=== PATIENT | male | born 1955 | race Caucasian/White ===

== ENCOUNTER 2020-08-15 12:43 | Inpatient (IN) ==
[2020-08-15] MEDS ORDERED: ONDANSETRON 4 MG/2 ML VIAL IV STA (15:36)
[2020-08-15] MEDS ORDERED: SODIUM CHLORIDE 0.9% 1,000 ML IV STA (15:36)
[2020-08-15] MEDS ORDERED: ONDANSETRON 4 MG/2 ML VIAL ONE (15:37)
[2020-08-15 15:40] LABS: Basophils % 0.4 % (0.0-0.8); Eosinophils # 0.1 10*3/uL (0.0-0.87); Eosinophils % 1.1 % (0.00-10.9); Hematocrit 45.5 VOL% (42.0-52.0); Hemoglobin 14.5 GM/DL (14.0-18.0); Immature Granulocytes % 0.2 %; Immature Granulocytes Absolute 0.02 #; Lymphocytes # 1.7 10*3/uL (1.4-4.0); Lymphocytes % 21.3 % (21.2-54.2); Mean Corpuscular HGB Conc 31.9 GM/DL (32-36); Mean Corpuscular Volume 95.8 FL (87-102); Mean Platelet Volume 10.2 FL (9.6-12.0); Monocytes % 9.5 % (1.7-12.7); Neutrophils % 67.5 % (38.7-73.9); Platelet Count 270 T/CUMM (130-400); Red Blood Count 4.75 MC/CUMM (3.8-5.5); Red Cell Distribution Width 14.7 % (9.3-17.3)
[2020-08-15 15:58] LABS: Bilirubin,Urine Negative (Negative); Blood, Urine Small mg/dL (Negative); Glucose,Urine (UA) Negative (Negative); Hyaline Casts,Urine 31 /LPF (0-3); Ketones,Urine Negative (Negative); Mucus,Urine Occasional /LPF (Occasional); Nitrite,Urine Negative (Negative); Protein,Urine 100 MG/DL; RBC,Urine 2 /HPF (0-4); Urine Appearance CLEAR (Clear); Urine Color Yellow (Yellow); Urine Specific Gravity 1.023 (1.001-1.035); Urine Urobilinogen < 2.0 EU/DL (0.2-1.0)
[2020-08-15 16:13] LABS: Albumin 4.7 G/DL (3.4-5.0); Bilirubin,Total 0.6 MG/DL (0.2-1.0); Calcium 9.5 MG/DL (8.5-10.1); Total Protein 8.9 G/DL (6.4-8.2)
[2020-08-15] MEDS ORDERED: PROMETHAZINE INJ 25 MG in SODIUM CHLORIDE 0.9% 50 ML IV STA (16:14)
[2020-08-15] MEDS ORDERED: PROMETHAZINE 25 MG/1 ML VIAL ONE (16:16)
[2020-08-15] MEDS ORDERED: DEXTROSE 50% 25 GM/50 ML VIAL IV PRN (19:18)
[2020-08-15] MEDS ORDERED: GLUCAGON 1 MG VIAL IM PRN (19:18)
[2020-08-15] MEDS ORDERED: ONDANSETRON 4 MG/2 ML VIAL IV PRN (19:25)
[2020-08-15] MEDS ORDERED: hydrALAZINE 20 MG/1 ML VIAL IV PRN (19:25)
[2020-08-15] MEDS ORDERED: diphenhydrAMINE 50 MG/1 ML VIAL IV PRN (19:29)
[2020-08-15] MEDS: DEXTROSE 5% NACL 0.45% 1,000 ML IV SCH (20:38)
[2020-08-15] MEDS: ENOXAPARIN 40 MG/0.4 ML SYRINGE SUBCUT SCH (20:38)
[2020-08-16] MEDS: DEXTROSE 5% NACL 0.45% 1,000 ML IV SCH ×5 (04:49→18:39)
[2020-08-16 05:56] LABS: Basophils % 0.4 % (0.0-0.8); Eosinophils # 0.1 10*3/uL (0.0-0.87); Eosinophils % 1.6 % (0.00-10.9); Hemoglobin 12.7 GM/DL (14.0-18.0); Immature Granulocytes % 0.3 %; Immature Granulocytes Absolute 0.02 #; Lymphocytes # 1.8 10*3/uL (1.4-4.0); Lymphocytes % 25.8 % (21.2-54.2); Mean Corpuscular HGB Conc 31.8 GM/DL (32-36); Mean Corpuscular Volume 96.4 FL (87-102); Mean Platelet Volume 10.6 FL (9.6-12.0); Monocytes % 11.8 % (1.7-12.7); Neutrophils % 60.1 % (38.7-73.9); Platelet Count 231 T/CUMM (130-400); Red Blood Count 4.15 MC/CUMM (3.8-5.5); Red Cell Distribution Width 14.9 % (9.3-17.3); White Blood Count 6.8 T/CUMM (4-12)
[2020-08-16 06:13] LABS: Calcium 8.8 MG/DL (8.5-10.1); Osmolality,Calculated 296.6 MOS/KG (273-304); Potassium 3.9 MMOL/L (3.5-5.1)
[2020-08-16] MEDS: ENOXAPARIN 40 MG/0.4 ML SYRINGE SUBCUT SCH (18:39)
[2020-08-17] MEDS: DEXTROSE 5% NACL 0.45% 1,000 ML IV SCH (03:30)
[2020-08-17 15:01] VITALS: BP 161/69
== END 2020-08-17 12:20 | disposition home or self-care (01) | DRG 395 ==
LOC: N.ED 12:43 → N.EDINP 19:18 → N.3E 21:13
PROVIDERS: ADMIT Family Medicine; ATTEND Family Medicine

== ENCOUNTER 2021-07-20 07:51 | Inpatient (IN) ==
[2021-07-20 08:23] LABS: Basophils % 0.2 % (0.0-0.8); Eosinophils # 0.1 10*3/uL (0.0-0.87); Eosinophils % 1.1 % (0.00-10.9); Hematocrit 43.7 VOL% (42.0-52.0); Hemoglobin 14.1 GM/DL (14.0-18.0); Immature Granulocytes % 0.4 %; Immature Granulocytes Absolute 0.05 #; Lymphocytes # 1.6 10*3/uL (1.4-4.0); Lymphocytes % 14.1 % (21.2-54.2); Mean Corpuscular HGB Conc 32.3 GM/DL (32-36); Mean Platelet Volume 9.9 FL (9.6-12.0); Monocytes # 1.4 10*3/uL (0.11-0.8); Monocytes % 12.5 % (1.7-12.7); Neutrophils % 71.7 % (38.7-73.9); Platelet Count 304 T/CUMM (130-400); Red Blood Count 4.65 MC/CUMM (3.8-5.5); Red Cell Distribution Width 13.5 % (9.3-17.3); White Blood Count 11.3 T/CUMM (4-12)
[2021-07-20 08:42] LABS: Bilirubin,Total 0.6 MG/DL (0.20-1.00); Calcium 8.7 MG/DL (8.5-10.1); Osmolality,Calculated 272.4 MOS/KG (273-304); Potassium 4.1 MMOL/L (3.5-5.1); Total Protein 7.5 G/DL (6.4-8.2)
[2021-07-20] MEDS ORDERED: SODIUM CHLORIDE 0.9% 1,000 ML IV STA ×2 (09:14→10:55)
[2021-07-20] MEDS ORDERED: GLUCAGON 1 MG VIAL IM PRN (11:38)
[2021-07-20] MEDS ORDERED: DEXTROSE 10% 250 ML BAG IV PRN (12:33)
[2021-07-20] MEDS: SODIUM CHLORIDE 0.9% 1,000 ML IV SCH ×2 (13:30→21:06)
[2021-07-20] MEDS: ENOXAPARIN 30 MG/0.3 ML SYRINGE SUBCUT SCH (17:14)
[2021-07-20] MEDS: allopurinoL 100 MG TABLET PO SCH (21:06)
[2021-07-20] MEDS: FLECAINIDE 100 MG TABLET PO SCH (21:06)
[2021-07-20] MEDS: KETOROLAC 15 MG/1 ML VIAL IV PRN (23:23)
[2021-07-21] MEDS: VANCOMYCIN 125 MG CAPSULE PO SCH ×4 (01:55→20:34)
[2021-07-21] MEDS: SODIUM CHLORIDE 0.9% 1,000 ML IV SCH ×3 (03:20→20:34)
[2021-07-21 05:33] LABS: Basophils % 0.3 % (0.0-0.8); Eosinophils % 0.4 % (0.00-10.9); Hematocrit 39.4 VOL% (42.0-52.0); Hemoglobin 12.4 GM/DL (14.0-18.0); Immature Granulocytes % 0.4 %; Immature Granulocytes Absolute 0.03 #; Lymphocytes # 1.1 10*3/uL (1.4-4.0); Lymphocytes % 16.3 % (21.2-54.2); Mean Corpuscular HGB Conc 31.5 GM/DL (32-36); Mean Corpuscular Volume 95.4 FL (87-102); Mean Platelet Volume 10.8 FL (9.6-12.0); Monocytes % 14.5 % (1.7-12.7); Neutrophils % 68.1 % (38.7-73.9); Platelet Count 232 T/CUMM (130-400); Red Blood Count 4.13 MC/CUMM (3.8-5.5); Red Cell Distribution Width 13.6 % (9.3-17.3)
[2021-07-21 05:54] LABS: Albumin 3.2 G/DL (3.4-5.0); Bilirubin,Total 0.4 MG/DL (0.20-1.00); Calcium 8.3 MG/DL (8.5-10.1); Osmolality,Calculated 277.8 MOS/KG (273-304); Potassium 4.1 MMOL/L (3.5-5.1); Total Protein 6.6 G/DL (6.4-8.2)
[2021-07-21] MEDS: FLECAINIDE 100 MG TABLET PO SCH ×2 (08:04→20:34)
[2021-07-21] MEDS: KETOROLAC 15 MG/1 ML VIAL IV PRN ×2 (08:06→17:27)
[2021-07-21] MEDS: PANTOPRAZOLE 40 MG TABLET PO SCH (08:13)
[2021-07-21] MEDS ORDERED: NON-FORMULARY MEDICATION (Losartan 100 mg Tablet) PO SCH (09:00)
[2021-07-21] MEDS ORDERED: amLODIPine 5 MG TABLET PO SCH (09:00)
[2021-07-21] MEDS: ENOXAPARIN 30 MG/0.3 ML SYRINGE SUBCUT SCH (15:21)
[2021-07-21] MEDS: allopurinoL 100 MG TABLET PO SCH (20:35)
[2021-07-22] MEDS: SIMETHICONE CHEW 125 MG TABLET PO PRN (00:02)
[2021-07-22] MEDS: ZALEPLON 5 MG CAPSULE PO PRN ×2 (00:02→20:40)
[2021-07-22] MEDS: KETOROLAC 15 MG/1 ML VIAL IV PRN ×4 (01:48→23:20)
[2021-07-22] MEDS: VANCOMYCIN 125 MG CAPSULE PO SCH ×4 (04:07→20:41)
[2021-07-22] MEDS: SODIUM CHLORIDE 0.9% 1,000 ML IV SCH ×2 (04:08→13:42)
[2021-07-22 04:40] LABS: Basophils % 0.3 % (0.0-0.8); Eosinophils # 0.1 10*3/uL (0.0-0.87); Eosinophils % 1.3 % (0.00-10.9); Hematocrit 35.2 VOL% (42.0-52.0); Hemoglobin 11.5 GM/DL (14.0-18.0); Immature Granulocytes % 0.3 %; Immature Granulocytes Absolute 0.01 #; Lymphocytes # 0.6 10*3/uL (1.4-4.0); Lymphocytes % 15.8 % (21.2-54.2); Mean Corpuscular HGB Conc 32.7 GM/DL (32-36); Mean Corpuscular Volume 93.6 FL (87-102); Mean Platelet Volume 10.3 FL (9.6-12.0); Monocytes # 0.8 10*3/uL (0.11-0.8); Monocytes % 20.4 % (1.7-12.7); Neutrophils % 61.9 % (38.7-73.9); Platelet Count 222 T/CUMM (130-400); Red Blood Count 3.76 MC/CUMM (3.8-5.5); Red Cell Distribution Width 13.5 % (9.3-17.3); White Blood Count 3.7 T/CUMM (4-12)
[2021-07-22 05:05] LABS: Calcium 8.1 MG/DL (8.5-10.1); Osmolality,Calculated 274.8 MOS/KG (273-304); Potassium 3.7 MMOL/L (3.5-5.1)
[2021-07-22 05:21] LABS: Band Neutrophils 11 % (0-10); Lymphocytes 12 % (20-55); Total Cells Counted 100
[2021-07-22 05:22] LABS: Microcytosis Slight; Ovalocytes Slight; Platelet Estimate Normal
[2021-07-22] MEDS: PANTOPRAZOLE 40 MG TABLET PO SCH (09:41)
[2021-07-22] MEDS: FLECAINIDE 100 MG TABLET PO SCH ×2 (09:42→20:40)
[2021-07-22] MEDS: SODIUM BICARB INJ 100 MEQ in DEXTROSE 5% 1,000 ML IV SCH (13:22)
[2021-07-22] MEDS: ENOXAPARIN 30 MG/0.3 ML SYRINGE SUBCUT SCH (17:27)
[2021-07-22] MEDS: allopurinoL 100 MG TABLET PO SCH (20:41)
[2021-07-23] MEDS: SODIUM BICARB INJ 100 MEQ in DEXTROSE 5% 1,000 ML IV SCH (01:14)
[2021-07-23] MEDS: VANCOMYCIN 125 MG CAPSULE PO SCH ×3 (02:15→14:52)
[2021-07-23] MEDS: KETOROLAC 15 MG/1 ML VIAL IV PRN ×3 (05:29→18:21)
[2021-07-23] MEDS: FLECAINIDE 100 MG TABLET PO SCH ×2 (10:42→21:14)
[2021-07-23] MEDS: PANTOPRAZOLE 40 MG TABLET PO SCH (10:42)
[2021-07-23] MEDS: SIMETHICONE CHEW 125 MG TABLET PO PRN (12:21)
[2021-07-23] MEDS: SODIUM BICARB INJ 150 MEQ in DEXTROSE 5% 1,000 ML IV SCH (14:05)
[2021-07-23] MEDS: ONDANSETRON 4 MG/2 ML VIAL IV PRN (14:45)
[2021-07-23] MEDS: VANCOMYCIN 50 MG/ML 60 ML/BOTTLE PER TUBE SCH (21:14)
[2021-07-23] MEDS: ZALEPLON 5 MG CAPSULE PO PRN (21:14)
[2021-07-23] MEDS: allopurinoL 100 MG TABLET PO SCH (21:14)
[2021-07-23] MEDS: metroNIDAZOLE INJ 500 MG/100 ML PREMIX IV SCH (21:14)
[2021-07-23] MEDS: ENOXAPARIN 30 MG/0.3 ML SYRINGE SUBCUT SCH (21:14)
[2021-07-24] MEDS: KETOROLAC 15 MG/1 ML VIAL IV PRN (00:13)
[2021-07-24] MEDS: SODIUM BICARB INJ 150 MEQ in DEXTROSE 5% 1,000 ML IV SCH (03:45)
[2021-07-24] MEDS: metroNIDAZOLE INJ 500 MG/100 ML PREMIX IV SCH ×3 (04:38→20:28)
[2021-07-24] MEDS: VANCOMYCIN 50 MG/ML 60 ML/BOTTLE PER TUBE SCH ×4 (04:38→20:28)
[2021-07-24 05:06] LABS: Basophils % 0.2 % (0.0-0.8); Hematocrit 37.6 VOL% (42.0-52.0); Hemoglobin 12.6 GM/DL (14.0-18.0); Immature Granulocytes % 0.7 %; Immature Granulocytes Absolute 0.03 #; Lymphocytes # 0.8 10*3/uL (1.4-4.0); Lymphocytes % 19.8 % (21.2-54.2); Mean Corpuscular HGB Conc 33.5 GM/DL (32-36); Mean Corpuscular Volume 90.6 FL (87-102); Mean Platelet Volume 10.5 FL (9.6-12.0); Monocytes # 1.1 10*3/uL (0.11-0.8); Monocytes % 25.9 % (1.7-12.7); Neutrophils % 52.4 % (38.7-73.9); Platelet Count 292 T/CUMM (130-400); Red Blood Count 4.15 MC/CUMM (3.8-5.5); Red Cell Distribution Width 13.3 % (9.3-17.3); White Blood Count 4.1 T/CUMM (4-12)
[2021-07-24 05:24] LABS: Calcium 8.6 MG/DL (8.5-10.1); Osmolality,Calculated 268.4 MOS/KG (273-304); Potassium 3.1 MMOL/L (3.5-5.1)
[2021-07-24 06:00] LABS: Eosinophils 1 % (0-10); Lymphocytes 28 % (20-55); Platelet Estimate Adequate; Total Cells Counted 100
[2021-07-24] MEDS ORDERED: MAGNESIUM SULF RIDER 2 GM/50 ML PREMIX IV ONE (07:40)
[2021-07-24] MEDS: PANTOPRAZOLE 40 MG TABLET PO SCH (10:50)
[2021-07-24] MEDS: FLECAINIDE 100 MG TABLET PO SCH ×2 (10:50→20:28)
[2021-07-24] MEDS: DEXTROSE 5% NACL 0.9% 1,000 ML IV SCH ×3 (14:32→23:50)
[2021-07-24] MEDS ORDERED: SODIUM CHLORIDE 0.9% 500 ML IV ONE (16:26)
[2021-07-24] MEDS: allopurinoL 100 MG TABLET PO SCH (20:28)
[2021-07-24] MEDS: ENOXAPARIN 30 MG/0.3 ML SYRINGE SUBCUT SCH (20:29)
[2021-07-24] MEDS: ZALEPLON 5 MG CAPSULE PO PRN (20:30)
[2021-07-25] MEDS: VANCOMYCIN 50 MG/ML 60 ML/BOTTLE PER TUBE SCH ×4 (03:25→20:53)
[2021-07-25] MEDS: metroNIDAZOLE INJ 500 MG/100 ML PREMIX IV SCH ×3 (05:08→20:52)
[2021-07-25 06:07] LABS: Basophils # 0.1 10*3/uL (0.0-0.2); Basophils % 0.9 % (0.0-0.8); Eosinophils # 0.1 10*3/uL (0.0-0.87); Eosinophils % 0.9 % (0.00-10.9); Hematocrit 37.8 VOL% (42.0-52.0); Hemoglobin 11.8 GM/DL (14.0-18.0); Immature Granulocytes % 0.6 %; Immature Granulocytes Absolute 0.04 #; Lymphocytes # 0.9 10*3/uL (1.4-4.0); Lymphocytes % 13.5 % (21.2-54.2); Mean Corpuscular HGB Conc 31.2 GM/DL (32-36); Mean Corpuscular Volume 92.9 FL (87-102); Mean Platelet Volume 10.1 FL (9.6-12.0); Monocytes # 1.4 10*3/uL (0.11-0.8); Monocytes % 21.3 % (1.7-12.7); Neutrophils % 62.8 % (38.7-73.9); Platelet Count 297 T/CUMM (130-400); Red Blood Count 4.07 MC/CUMM (3.8-5.5); Red Cell Distribution Width 13.7 % (9.3-17.3); White Blood Count 6.8 T/CUMM (4-12)
[2021-07-25 06:28] LABS: Calcium 8.5 MG/DL (8.5-10.1); Osmolality,Calculated 284.7 MOS/KG (273-304)
[2021-07-25 06:30] LABS: Band Neutrophils 9 % (0-10); Lymphocytes 13 % (20-55); Platelet Estimate Normal; Total Cells Counted 100
[2021-07-25] MEDS: FLECAINIDE 100 MG TABLET PO SCH ×2 (09:36→20:52)
[2021-07-25] MEDS: PANTOPRAZOLE 40 MG VIAL IV SCH (09:36)
[2021-07-25] MEDS: DEXT 5% NACL 0.9% KCL 20 MEQ 20 MEQ/1,000 ML BAG IV SCH ×3 (09:37→23:34)
[2021-07-25] MEDS: DEXTROSE 5% NACL 0.9% 1,000 ML IV SCH (09:42)
[2021-07-25] MEDS ORDERED: allopurinoL 100 MG TABLET PO SCH (19:00)
[2021-07-25] MEDS: ENOXAPARIN 30 MG/0.3 ML SYRINGE SUBCUT SCH (20:53)
[2021-07-25] MEDS: ZALEPLON 5 MG CAPSULE PO PRN (20:58)
[2021-07-26] MEDS: VANCOMYCIN 50 MG/ML 60 ML/BOTTLE PER TUBE SCH ×4 (03:11→21:20)
[2021-07-26 04:18] LABS: Basophils # 0.1 10*3/uL (0.0-0.2); Basophils % 0.7 % (0.0-0.8); Eosinophils # 0.1 10*3/uL (0.0-0.87); Eosinophils % 1.1 % (0.00-10.9); Hematocrit 38.7 VOL% (42.0-52.0); Hemoglobin 12.4 GM/DL (14.0-18.0); Immature Granulocytes % 0.8 %; Immature Granulocytes Absolute 0.07 #; Lymphocytes # 0.9 10*3/uL (1.4-4.0); Lymphocytes % 9.6 % (21.2-54.2); Mean Corpuscular Volume 93.7 FL (87-102); Mean Platelet Volume 9.9 FL (9.6-12.0); Monocytes # 1.5 10*3/uL (0.11-0.8); Neutrophils % 70.8 % (38.7-73.9); Platelet Count 318 T/CUMM (130-400); Red Blood Count 4.13 MC/CUMM (3.8-5.5); Red Cell Distribution Width 13.7 % (9.3-17.3); White Blood Count 8.9 T/CUMM (4-12)
[2021-07-26 04:37] LABS: Calcium 8.7 MG/DL (8.5-10.1); Osmolality,Calculated 292.4 MOS/KG (273-304); Potassium 3.4 MMOL/L (3.5-5.1)
[2021-07-26 04:39] LABS: Band Neutrophils 4 % (0-10); Lymphocytes 12 % (20-55); Platelet Estimate Adequate; Total Cells Counted 100
[2021-07-26] MEDS: metroNIDAZOLE INJ 500 MG/100 ML PREMIX IV SCH ×3 (05:07→20:45)
[2021-07-26] MEDS: DEXT 5% NACL 0.9% KCL 20 MEQ 20 MEQ/1,000 ML BAG IV SCH ×3 (06:44→19:22)
[2021-07-26] MEDS: FLECAINIDE 100 MG TABLET PO SCH ×2 (10:08→20:47)
[2021-07-26] MEDS: PANTOPRAZOLE 40 MG VIAL IV SCH (10:08)
[2021-07-26] MEDS ORDERED: SODIUM CHLORIDE 0.9% 1,000 ML IV ONE (12:30)
[2021-07-26] MEDS ORDERED: SODIUM CHLORIDE 0.9% 1,000 ML IV SCH (12:30)
[2021-07-26] MEDS: ENOXAPARIN 30 MG/0.3 ML SYRINGE SUBCUT SCH (20:46)
[2021-07-27] MEDS: VANCOMYCIN 50 MG/ML 60 ML/BOTTLE PER TUBE SCH ×4 (03:30→21:35)
[2021-07-27] MEDS: metroNIDAZOLE INJ 500 MG/100 ML PREMIX IV SCH ×3 (05:30→21:21)
[2021-07-27 05:34] LABS: Calcium 8.2 MG/DL (8.5-10.1); Osmolality,Calculated 294.1 MOS/KG (273-304); Potassium 3.6 MMOL/L (3.5-5.1)
[2021-07-27] MEDS: DEXT 5% NACL 0.9% KCL 20 MEQ 20 MEQ/1,000 ML BAG IV SCH ×4 (06:38→19:26)
[2021-07-27] MEDS: PANTOPRAZOLE 40 MG VIAL IV SCH (10:01)
[2021-07-27] MEDS: FLECAINIDE 100 MG TABLET PO SCH ×2 (10:01→21:22)
[2021-07-27 14:16] LABS: Bilirubin,Urine Small mg/dL (Negative); Blood, Urine Negative (Negative); Glucose,Urine (UA) Negative (Negative); Ketones,Urine Negative (Negative); Nitrite,Urine Negative (Negative); Protein,Urine 100 mg/dL (Negative); Urine Appearance Clear (Clear); Urine Color Brown (Yellow); Urine Specific Gravity 1.015 (1.001-1.035); Urine Urobilinogen 0.2 eU/dL (<2.0)
[2021-07-27 14:18] LABS: Mucus,Urine Occasional /LPF (Occasional); RBC,Urine 2 /HPF (0-4); Squamous Epithelial Cell,Urine Occasional /HPF (0-10)
[2021-07-27] MEDS: ENOXAPARIN 30 MG/0.3 ML SYRINGE SUBCUT SCH (21:22)
[2021-07-28] MEDS: DEXT 5% NACL 0.9% KCL 20 MEQ 20 MEQ/1,000 ML BAG IV SCH ×3 (04:16→18:46)
[2021-07-28] MEDS: VANCOMYCIN 50 MG/ML 60 ML/BOTTLE PER TUBE SCH ×4 (04:17→20:39)
[2021-07-28] MEDS: metroNIDAZOLE INJ 500 MG/100 ML PREMIX IV SCH ×3 (04:19→20:40)
[2021-07-28 05:07] LABS: Basophils % 0.5 % (0.0-0.8); Eosinophils # 0.1 10*3/uL (0.0-0.87); Eosinophils % 1.5 % (0.00-10.9); Hematocrit 38.6 VOL% (42.0-52.0); Immature Granulocytes % 1.3 %; Immature Granulocytes Absolute 0.11 #; Lymphocytes # 1.1 10*3/uL (1.4-4.0); Lymphocytes % 13.1 % (21.2-54.2); Mean Corpuscular HGB Conc 31.1 GM/DL (32-36); Mean Corpuscular Volume 96.3 FL (87-102); Mean Platelet Volume 9.9 FL (9.6-12.0); Monocytes # 1.2 10*3/uL (0.11-0.8); Monocytes % 14.2 % (1.7-12.7); Neutrophils % 69.4 % (38.7-73.9); Platelet Count 318 T/CUMM (130-400); Red Blood Count 4.01 MC/CUMM (3.8-5.5); White Blood Count 8.5 T/CUMM (4-12)
[2021-07-28 05:23] LABS: Calcium 8.9 MG/DL (8.5-10.1); Potassium 4.1 MMOL/L (3.5-5.1)
[2021-07-28] MEDS: PANTOPRAZOLE 40 MG VIAL IV SCH (09:52)
[2021-07-28] MEDS: FLECAINIDE 100 MG TABLET PO SCH ×2 (09:53→20:38)
[2021-07-28] MEDS ORDERED: METOCLOPRAMIDE 10 MG/2 ML VIAL IV PRN (11:25)
[2021-07-28] MEDS: traMADol 50 MG TABLET PO PRN (15:13)
[2021-07-28] MEDS: ZALEPLON 5 MG CAPSULE PO PRN (20:39)
[2021-07-28] MEDS: ENOXAPARIN 40 MG/0.4 ML SYRINGE SUBCUT SCH (20:39)
[2021-07-29] MEDS: DEXT 5% NACL 0.9% KCL 20 MEQ 20 MEQ/1,000 ML BAG IV SCH ×2 (01:54→13:40)
[2021-07-29] MEDS: VANCOMYCIN 50 MG/ML 60 ML/BOTTLE PER TUBE SCH ×4 (03:42→20:11)
[2021-07-29] MEDS: metroNIDAZOLE INJ 500 MG/100 ML PREMIX IV SCH ×2 (05:22→12:20)
[2021-07-29 05:23] LABS: Basophils % 0.2 % (0.0-0.8); Eosinophils # 0.2 10*3/uL (0.0-0.87); Eosinophils % 1.7 % (0.00-10.9); Hematocrit 37.4 VOL% (42.0-52.0); Hemoglobin 11.5 GM/DL (14.0-18.0); Immature Granulocytes % 1.3 %; Immature Granulocytes Absolute 0.12 #; Lymphocytes # 1.2 10*3/uL (1.4-4.0); Lymphocytes % 13.3 % (21.2-54.2); Mean Corpuscular HGB Conc 30.7 GM/DL (32-36); Mean Corpuscular Volume 97.1 FL (87-102); Mean Platelet Volume 10.1 FL (9.6-12.0); Monocytes # 1.1 10*3/uL (0.11-0.8); Monocytes % 11.7 % (1.7-12.7); Neutrophils % 71.8 % (38.7-73.9); Platelet Count 334 T/CUMM (130-400); Red Blood Count 3.85 MC/CUMM (3.8-5.5); Red Cell Distribution Width 14.3 % (9.3-17.3); White Blood Count 8.9 T/CUMM (4-12)
[2021-07-29 05:35] LABS: Calcium 8.8 MG/DL (8.5-10.1); Osmolality,Calculated 284.3 MOS/KG (273-304); Potassium 4.3 MMOL/L (3.5-5.1)
[2021-07-29] MEDS: FLECAINIDE 100 MG TABLET PO SCH ×2 (08:32→20:11)
[2021-07-29] MEDS: PANTOPRAZOLE 40 MG VIAL IV SCH (08:33)
[2021-07-29] MEDS: METOPROLOL SUCCINATE XL 50 MG TABLET PO SCH (08:35)
[2021-07-29] MEDS: amLODIPine 5 MG TABLET PO SCH (10:00)
[2021-07-29] MEDS ORDERED: hydrALAZINE 20 MG/1 ML VIAL IV PRN (14:21)
[2021-07-29] MEDS: ATORVASTATIN 20 MG TABLET PO SCH (18:33)
[2021-07-29] MEDS: ENOXAPARIN 40 MG/0.4 ML SYRINGE SUBCUT SCH (20:11)
[2021-07-29] MEDS ORDERED: CHOLESTYRAMINE 4 GM PACK PO SCH (22:00)
[2021-07-30] MEDS: VANCOMYCIN 50 MG/ML 60 ML/BOTTLE PER TUBE SCH ×4 (03:27→20:20)
[2021-07-30] MEDS: DEXT 5% NACL 0.9% KCL 20 MEQ 20 MEQ/1,000 ML BAG IV SCH (05:59)
[2021-07-30 06:15] LABS: Basophils % 0.2 % (0.0-0.8); Eosinophils # 0.2 10*3/uL (0.0-0.87); Eosinophils % 1.7 % (0.00-10.9); Hematocrit 37.6 VOL% (42.0-52.0); Hemoglobin 11.7 GM/DL (14.0-18.0); Immature Granulocytes % 1.6 %; Immature Granulocytes Absolute 0.15 #; Lymphocytes # 1.4 10*3/uL (1.4-4.0); Lymphocytes % 15.6 % (21.2-54.2); Mean Corpuscular HGB Conc 31.1 GM/DL (32-36); Mean Corpuscular Volume 97.2 FL (87-102); Mean Platelet Volume 9.7 FL (9.6-12.0); Monocytes # 0.9 10*3/uL (0.11-0.8); Monocytes % 9.3 % (1.7-12.7); Neutrophils % 71.6 % (38.7-73.9); Platelet Count 350 T/CUMM (130-400); Red Blood Count 3.87 MC/CUMM (3.8-5.5); Red Cell Distribution Width 14.6 % (9.3-17.3); White Blood Count 9.2 T/CUMM (4-12)
[2021-07-30 06:31] LABS: Calcium 8.3 MG/DL (8.5-10.1); Osmolality,Calculated 274.5 MOS/KG (273-304); Potassium 4.3 MMOL/L (3.5-5.1)
[2021-07-30 06:50] LABS: Albumin 2.5 G/DL (3.4-5.0); Bilirubin,Total 0.4 MG/DL (0.20-1.00); Calcium 8.8 MG/DL (8.5-10.1); Osmolality,Calculated 275.5 MOS/KG (273-304); Potassium 4.2 MMOL/L (3.5-5.1); Total Protein 6.1 G/DL (6.4-8.2)
[2021-07-30] MEDS: amLODIPine 5 MG TABLET PO SCH (09:32)
[2021-07-30] MEDS: FLECAINIDE 100 MG TABLET PO SCH ×2 (09:32→20:20)
[2021-07-30] MEDS: METOPROLOL SUCCINATE XL 50 MG TABLET PO SCH (09:32)
[2021-07-30] MEDS: PANTOPRAZOLE 40 MG VIAL IV SCH (09:33)
[2021-07-30] MEDS ORDERED: MAGNESIUM SULF RIDER 2 GM/50 ML PREMIX IV ONE (11:00)
[2021-07-30] MEDS: traMADol 50 MG TABLET PO PRN (13:27)
[2021-07-30] MEDS: ONDANSETRON 4 MG/2 ML VIAL IV PRN (15:42)
[2021-07-30] MEDS: ATORVASTATIN 20 MG TABLET PO SCH (18:36)
[2021-07-30] MEDS: ENOXAPARIN 40 MG/0.4 ML SYRINGE SUBCUT SCH (20:20)
[2021-07-30] MEDS: METOCLOPRAMIDE 10 MG/2 ML VIAL IV SCH (23:41)
[2021-07-31] MEDS: VANCOMYCIN 50 MG/ML 60 ML/BOTTLE PER TUBE SCH ×4 (02:56→21:51)
[2021-07-31 03:45] LABS: Basophils % 0.2 % (0.0-0.8); Eosinophils # 0.2 10*3/uL (0.0-0.87); Eosinophils % 1.8 % (0.00-10.9); Hematocrit 35.3 VOL% (42.0-52.0); Hemoglobin 10.8 GM/DL (14.0-18.0); Immature Granulocytes Absolute 0.08 #; Lymphocytes # 1.5 10*3/uL (1.4-4.0); Lymphocytes % 18.5 % (21.2-54.2); Mean Corpuscular HGB Conc 30.6 GM/DL (32-36); Mean Corpuscular Volume 96.7 FL (87-102); Mean Platelet Volume 9.3 FL (9.6-12.0); Monocytes # 0.7 10*3/uL (0.11-0.8); Monocytes % 8.4 % (1.7-12.7); Neutrophils % 70.1 % (38.7-73.9); Platelet Count 312 T/CUMM (130-400); Red Blood Count 3.65 MC/CUMM (3.8-5.5); Red Cell Distribution Width 14.4 % (9.3-17.3); White Blood Count 8.2 T/CUMM (4-12)
[2021-07-31 04:10] LABS: Calcium 8.3 MG/DL (8.5-10.1); Osmolality,Calculated 276.4 MOS/KG (273-304); Potassium 4.2 MMOL/L (3.5-5.1)
[2021-07-31] MEDS: METOCLOPRAMIDE 10 MG/2 ML VIAL IV SCH ×4 (06:17→23:50)
[2021-07-31] MEDS: DEXT 5% NACL 0.9% KCL 20 MEQ 20 MEQ/1,000 ML BAG IV SCH (06:17)
[2021-07-31] MEDS ORDERED: MAGNESIUM SULF RIDER 2 GM/50 ML PREMIX IV ONE (07:56)
[2021-07-31] MEDS: PANTOPRAZOLE 40 MG VIAL IV SCH (09:21)
[2021-07-31] MEDS: FLECAINIDE 100 MG TABLET PO SCH ×2 (09:21→21:49)
[2021-07-31] MEDS: METOPROLOL SUCCINATE XL 50 MG TABLET PO SCH (09:22)
[2021-07-31] MEDS: amLODIPine 5 MG TABLET PO SCH (09:22)
[2021-07-31] MEDS ORDERED: FUROSEMIDE 40 MG/4 ML VIAL IV ONE (12:00)
[2021-07-31] MEDS: SODIUM BICARB INJ 100 MEQ in DEXTROSE 5% NACL 0.45% 1,000 ML IV SCH (17:13)
[2021-07-31] MEDS: traMADol 50 MG TABLET PO PRN (21:50)
[2021-07-31] MEDS: ATORVASTATIN 20 MG TABLET PO SCH (21:51)
[2021-07-31] MEDS: ENOXAPARIN 40 MG/0.4 ML SYRINGE SUBCUT SCH (21:51)
[2021-08-01] MEDS: VANCOMYCIN 50 MG/ML 60 ML/BOTTLE PER TUBE SCH ×4 (02:37→21:53)
[2021-08-01 05:20] LABS: Basophils % 0.4 % (0.0-0.8); Eosinophils # 0.1 10*3/uL (0.0-0.87); Hematocrit 36.3 VOL% (42.0-52.0); Hemoglobin 11.4 GM/DL (14.0-18.0); Immature Granulocytes % 0.9 %; Lymphocytes # 1.6 10*3/uL (1.4-4.0); Lymphocytes % 14.3 % (21.2-54.2); Mean Corpuscular HGB Conc 31.4 GM/DL (32-36); Mean Corpuscular Volume 95.3 FL (87-102); Monocytes # 0.8 10*3/uL (0.11-0.8); Neutrophils % 76.4 % (38.7-73.9); Platelet Count 355 T/CUMM (130-400); Red Blood Count 3.81 MC/CUMM (3.8-5.5); Red Cell Distribution Width 14.1 % (9.3-17.3); White Blood Count 10.9 T/CUMM (4-12)
[2021-08-01] MEDS: METOCLOPRAMIDE 10 MG/2 ML VIAL IV SCH ×2 (06:14→12:54)
[2021-08-01 06:26] LABS: Calcium 8.4 MG/DL (8.5-10.1); Osmolality,Calculated 275.4 MOS/KG (273-304); Potassium 4.2 MMOL/L (3.5-5.1)
[2021-08-01] MEDS ORDERED: MAGNESIUM SULF RIDER 4 GM/100 ML PREMIX IV ONE (07:43)
[2021-08-01] MEDS: FLECAINIDE 100 MG TABLET PO SCH ×2 (10:09→21:52)
[2021-08-01] MEDS: amLODIPine 5 MG TABLET PO SCH (10:10)
[2021-08-01] MEDS: PANTOPRAZOLE 40 MG VIAL IV SCH (10:11)
[2021-08-01] MEDS: METOPROLOL SUCCINATE XL 50 MG TABLET PO SCH (10:11)
[2021-08-01] MEDS: SODIUM BICARB INJ 100 MEQ in DEXTROSE 5% NACL 0.45% 1,000 ML IV SCH (10:11)
[2021-08-01] MEDS: METOCLOPRAMIDE 10 MG/10 ML UDCUP PO SCH ×2 (16:15→21:51)
[2021-08-01] MEDS ORDERED: SIMETHICONE CHEW 125 MG TABLET PO PRN (20:14)
[2021-08-01] MEDS: ENOXAPARIN 40 MG/0.4 ML SYRINGE SUBCUT SCH (21:51)
[2021-08-01] MEDS: ATORVASTATIN 20 MG TABLET PO SCH (21:52)
[2021-08-02] MEDS: VANCOMYCIN 50 MG/ML 60 ML/BOTTLE PER TUBE SCH ×4 (03:02→20:54)
[2021-08-02 05:39] LABS: Basophils % 0.3 % (0.0-0.8); Eosinophils # 0.1 10*3/uL (0.0-0.87); Eosinophils % 1.4 % (0.00-10.9); Hematocrit 34.4 VOL% (42.0-52.0); Immature Granulocytes % 0.7 %; Immature Granulocytes Absolute 0.06 #; Lymphocytes # 1.5 10*3/uL (1.4-4.0); Lymphocytes % 17.2 % (21.2-54.2); Mean Corpuscular Volume 94.5 FL (87-102); Mean Platelet Volume 10.3 FL (9.6-12.0); Monocytes # 0.9 10*3/uL (0.11-0.8); Monocytes % 9.8 % (1.7-12.7); Neutrophils % 70.6 % (38.7-73.9); Platelet Count 320 T/CUMM (130-400); Red Blood Count 3.64 MC/CUMM (3.8-5.5); White Blood Count 8.8 T/CUMM (4-12)
[2021-08-02 05:52] LABS: Calcium 8.7 MG/DL (8.5-10.1); Osmolality,Calculated 273.5 MOS/KG (273-304); Potassium 3.5 MMOL/L (3.5-5.1)
[2021-08-02] MEDS: FLECAINIDE 100 MG TABLET PO SCH ×2 (09:02→20:54)
[2021-08-02] MEDS: amLODIPine 5 MG TABLET PO SCH (09:03)
[2021-08-02] MEDS: PANTOPRAZOLE 40 MG VIAL IV SCH (09:03)
[2021-08-02] MEDS: METOCLOPRAMIDE 10 MG/10 ML UDCUP PO SCH ×4 (09:03→20:54)
[2021-08-02] MEDS: METOPROLOL SUCCINATE XL 50 MG TABLET PO SCH (09:03)
[2021-08-02] MEDS ORDERED: MORPHINE 2 MG/1 ML SYRINGE IV PRN (09:04)
[2021-08-02] MEDS ORDERED: POTASSIUM CHLORIDE 20 MEQ TABLET PO ONE ×2 (09:07→16:00)
[2021-08-02] MEDS: SODIUM BICARB INJ 100 MEQ in DEXTROSE 5% NACL 0.45% 1,000 ML IV SCH (15:48)
[2021-08-02] MEDS: POTASSIUM CHLORIDE RIDER 10 MEQ/100 ML PREMIX IV PRN (15:50)
[2021-08-02] MEDS ORDERED: MAGNESIUM CITRATE 300 ML BOTTLE PO ONE (16:00)
[2021-08-02] MEDS: ATORVASTATIN 20 MG TABLET PO SCH (20:54)
[2021-08-03] MEDS: POTASSIUM CHLORIDE RIDER 10 MEQ/100 ML PREMIX IV PRN ×2 (00:56→02:13)
[2021-08-03] MEDS: VANCOMYCIN 50 MG/ML 60 ML/BOTTLE PER TUBE SCH (02:50)
[2021-08-03] MEDS ORDERED: SODIUM PHOSPHATE ENEMA 133 ML BOTTLE RECTAL ONE (06:00)
[2021-08-03 07:03] LABS: Basophils % 0.4 % (0.0-0.8); Eosinophils # 0.2 10*3/uL (0.0-0.87); Eosinophils % 2.1 % (0.00-10.9); Hematocrit 36.8 VOL% (42.0-52.0); Hemoglobin 11.8 GM/DL (14.0-18.0); Immature Granulocytes % 0.6 %; Immature Granulocytes Absolute 0.05 #; Lymphocytes # 1.3 10*3/uL (1.4-4.0); Lymphocytes % 16.1 % (21.2-54.2); Mean Corpuscular HGB Conc 32.1 GM/DL (32-36); Mean Corpuscular Volume 93.9 FL (87-102); Mean Platelet Volume 9.8 FL (9.6-12.0); Monocytes # 0.7 10*3/uL (0.11-0.8); Monocytes % 8.8 % (1.7-12.7); Platelet Count 356 T/CUMM (130-400); Red Blood Count 3.92 MC/CUMM (3.8-5.5); White Blood Count 7.8 T/CUMM (4-12)
[2021-08-03 07:27] LABS: Calcium 9.1 MG/DL (8.5-10.1); Osmolality,Calculated 275.4 MOS/KG (273-304)
[2021-08-03] MEDS: amLODIPine 5 MG TABLET PO SCH (09:46)
[2021-08-03] MEDS: FLECAINIDE 100 MG TABLET PO SCH ×2 (09:47→21:41)
[2021-08-03] MEDS: METOPROLOL SUCCINATE XL 50 MG TABLET PO SCH (09:47)
[2021-08-03] MEDS: PANTOPRAZOLE 40 MG VIAL IV SCH (09:49)
[2021-08-03] MEDS: METOCLOPRAMIDE 10 MG/10 ML UDCUP PO SCH ×4 (11:00→21:41)
[2021-08-03] MEDS ORDERED: LIDOCAINE 2% 5 ML VIAL ONE (13:13)
[2021-08-03] MEDS ORDERED: propofoL 200 MG/20 ML VIAL IV ONE ×2 (13:13→13:24)
[2021-08-03] MEDS: LACTATED RINGERS 1,000 ML IV SCH (14:15)
[2021-08-03] MEDS: DEXTROSE 5% NACL 0.45% 1,000 ML IV SCH (15:05)
[2021-08-03] MEDS: ATORVASTATIN 20 MG TABLET PO SCH (21:41)
[2021-08-04 04:44] LABS: Basophils # 0.1 10*3/uL (0.0-0.2); Basophils % 0.7 % (0.0-0.8); Eosinophils # 0.1 10*3/uL (0.0-0.87); Eosinophils % 1.7 % (0.00-10.9); Hematocrit 38.1 VOL% (42.0-52.0); Hemoglobin 11.9 GM/DL (14.0-18.0); Immature Granulocytes % 1.6 %; Immature Granulocytes Absolute 0.12 #; Lymphocytes # 1.6 10*3/uL (1.4-4.0); Lymphocytes % 20.7 % (21.2-54.2); Mean Corpuscular HGB Conc 31.2 GM/DL (32-36); Mean Corpuscular Volume 97.7 FL (87-102); Monocytes # 0.8 10*3/uL (0.11-0.8); Monocytes % 10.1 % (1.7-12.7); Neutrophils % 65.2 % (38.7-73.9); Platelet Count 145 T/CUMM (130-400); Red Cell Distribution Width 14.2 % (9.3-17.3); White Blood Count 7.7 T/CUMM (4-12)
[2021-08-04] MEDS: DEXTROSE 5% NACL 0.45% 1,000 ML IV SCH (05:00)
[2021-08-04 07:29] LABS: Calcium 8.8 MG/DL (8.5-10.1); Osmolality,Calculated 275.4 MOS/KG (273-304); Potassium 3.8 MMOL/L (3.5-5.1)
[2021-08-04] MEDS: METOCLOPRAMIDE 10 MG/10 ML UDCUP PO SCH ×4 (07:54→20:43)
[2021-08-04] MEDS ORDERED: MAGNESIUM SULF RIDER 4 GM/100 ML PREMIX IV PRN (08:39)
[2021-08-04] MEDS: PANTOPRAZOLE 40 MG VIAL IV SCH (09:24)
[2021-08-04] MEDS: METOPROLOL SUCCINATE XL 50 MG TABLET PO SCH (09:24)
[2021-08-04] MEDS: amLODIPine 5 MG TABLET PO SCH (09:24)
[2021-08-04] MEDS: FLECAINIDE 100 MG TABLET PO SCH ×2 (09:24→20:41)
[2021-08-04] MEDS: MAGNESIUM SULF RIDER 2 GM/50 ML PREMIX IV PRN (09:25)
[2021-08-04] MEDS: SODIUM BICARB INJ 50 MEQ in DEXTROSE 5% NACL 0.45% 1,000 ML IV SCH (11:02)
[2021-08-04] MEDS: LACTATED RINGERS 1,000 ML IV SCH (17:39)
[2021-08-04] MEDS: SODIUM BICARB INJ 100 MEQ in DEXTROSE 5% NACL 0.45% 1,000 ML IV SCH (19:31)
[2021-08-04] MEDS: ENOXAPARIN 40 MG/0.4 ML SYRINGE SUBCUT SCH (20:41)
[2021-08-04] MEDS: ATORVASTATIN 20 MG TABLET PO SCH (20:41)
[2021-08-05] MEDS: SODIUM BICARB INJ 50 MEQ in DEXTROSE 5% NACL 0.45% 1,000 ML IV SCH ×2 (00:48→05:57)
[2021-08-05 05:09] LABS: Basophils % 0.5 % (0.0-0.8); Eosinophils # 0.1 10*3/uL (0.0-0.87); Eosinophils % 1.6 % (0.00-10.9); Hematocrit 33.3 VOL% (42.0-52.0); Hemoglobin 10.7 GM/DL (14.0-18.0); Immature Granulocytes % 0.6 %; Immature Granulocytes Absolute 0.04 #; Lymphocytes # 1.6 10*3/uL (1.4-4.0); Lymphocytes % 24.7 % (21.2-54.2); Mean Corpuscular HGB Conc 32.1 GM/DL (32-36); Mean Corpuscular Volume 94.1 FL (87-102); Mean Platelet Volume 10.2 FL (9.6-12.0); Monocytes # 0.9 10*3/uL (0.11-0.8); Monocytes % 13.6 % (1.7-12.7); Platelet Count 324 T/CUMM (130-400); Red Blood Count 3.54 MC/CUMM (3.8-5.5); Red Cell Distribution Width 13.8 % (9.3-17.3); White Blood Count 6.4 T/CUMM (4-12)
[2021-08-05 05:27] LABS: Alanine Aminotransferase 27 U/L (16-61); Albumin 2.3 G/DL (3.4-5.0); Alkaline Phosphatase 50 U/L (45-117); Aspartate Amino Transferase 18 U/L (0-37); Bilirubin,Total < 0.39 MG/DL (0.20-1.00); Blood Urea Nitrogen 6 MG/DL (7-18); Carbon Dioxide 28 MMOL/L (21-32); Chloride 110 MMOL/L (98-107); Estimated Glom Filtration Rate 99 ML/MIN; Glucose 99 MG/DL (74-106); Osmolality,Calculated 278.3 MOS/KG (273-304); Potassium 3.6 MMOL/L (3.5-5.1); Sodium 141 MMOL/L (136-145); Total Protein 5.5 G/DL (6.4-8.2)
[2021-08-05] MEDS: MAGNESIUM SULF RIDER 2 GM/50 ML PREMIX IV PRN (06:14)
[2021-08-05] MEDS ORDERED: MAGNESIUM OXIDE 400 MG TABLET PO ONE (08:12)
[2021-08-05 08:44] VITALS: BP 144/53
[2021-08-05] MEDS: METOCLOPRAMIDE 10 MG/10 ML UDCUP PO SCH ×2 (09:09→11:01)
[2021-08-05] MEDS: METOPROLOL SUCCINATE XL 50 MG TABLET PO SCH (09:09)
[2021-08-05] MEDS: PANTOPRAZOLE 40 MG VIAL IV SCH (09:09)
[2021-08-05] MEDS: amLODIPine 5 MG TABLET PO SCH (09:09)
[2021-08-05] MEDS: FLECAINIDE 100 MG TABLET PO SCH (09:09)
[2021-08-06] MEDS ORDERED: CHOLESTYRAMINE 4 GM PACK PO SCH (13:30)
== END 2021-08-05 13:49 | disposition home or self-care (01) | DRG 372 ==
LOC: N.ED 07:51 → N.EDINP 07:51 → N.5E 18:20 → SUATTDRO 07-22 09:12
PROVIDERS: ADMIT Internal Medicine Geriatric Medicine; ATTEND Emergency Medicine